=== PATIENT | male | born 1950 | race Asian ===

== ENCOUNTER → 2018-03-06 | Outpatient (CLI) | payer MEDICARE, OTHER ==
[~2018-03-06] MED LIST: METOPROLOL 100 MG TAB; NITROGLYCERIN AEROSOL (4.9 GM)
[2018-03-06 08:19] LABS: BLOOD UREA NITROGEN 12 mg/dl (7-20)
[2018-03-06 08:19] LABS: CREATININE 0.65 mg/dl (0.61-1.24)
[2018-03-06] MEDS: IOHEXOL 100 ML (11:10)
[2018-03-06] MEDS: SOD CHLORIDE 0.9% 100 ML (11:10)
== END | disposition home or self-care (01) ==
LOC: LAB 07:32
DX: R06.02 Shortness of breath (principal)
CPT/HCPCS: 75574; 82565; 84520